=== PATIENT | male | born 1960 | race Two or more races ===

== ENCOUNTER 2022-11-19 05:24 | Inpatient (IN) | payer OTHER ==
[~2022-11-19] VITALS: Ht 177.8 cm; Wt 98.9 kg
[~2022-11-19 05:24] MED LIST: AVAPRO300 MG PO; ESTAZOLAM1 MG PO; FENOFIBRATE50 MG PO; NORVASC2.5 M1 PO; PEPCID40 MG PO; PRILOSEC10 MG PO; UROXATRAL10 MG PO
[2022-11-19] MEDS ORDERED: FLONASE16 GM (14:58)
[2022-11-19] MEDS ORDERED: FENOFIBRATE145 MG (14:58)
[2022-11-19] MEDS ORDERED: OMEPRAZOLE40 MG (14:59)
[2022-11-19] MEDS ORDERED: VITAMIN D350 MC4 (15:01)
[2022-11-19] MEDS ORDERED: ONE-DAILY MULT1 EAC1 (15:02)
[2022-11-19] MEDS ORDERED: FENOFIBRATE54 MG (15:05)
== END 2022-11-20 12:36 | disposition home or self-care (01) | DRG 627 ==
LOC: CIR.AMB 05:24 → SURH 10:42 → CIR.AMB 18:30 → SURH 11-20 12:36
PROVIDERS: ADMIT Otolaryngology; ATTEND Otolaryngology
PROC: 0GTK0ZZ Resection of Thyroid Gland, Open Approach (ICD-10-PCS; principal; 2022-11-19 18:30)
DX: C73 Malignant neoplasm of thyroid gland (principal); Z20.822 Contact with and (suspected) exposure to COVID-19